=== PATIENT | female | born 1995 | race Caucasian/White ===

== ENCOUNTER 2019-07-01 12:19 | Emergency (ER) | payer BC, OTHER ==
[~2019-07-01] VITALS: Ht 170 cm; Wt 64.0 kg
[2019-07-01] MEDS ORDERED: LACTATED RINGERS 1,000 ML IV ONE (13:02)
[2019-07-01] MEDS ORDERED: FAMOTIDINE 20 MG (PEPCID) TABLET PO STA (13:02)
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
[2019-07-01] MEDS ORDERED: DICL75TA2 (13:10)
[2019-07-01] MEDS ORDERED: GABA-486 (13:10)
[2019-07-01] MEDS ORDERED: GABA-488 (13:10)
[2019-07-01] MEDS ORDERED: SPIR50TA4 (13:10)
[2019-07-01] MEDS ORDERED: DULO30CA49 (13:10)
[2019-07-01] MEDS ORDERED: LIDOCAINE 2% VISCOUS 15 ML UDC PO ONE (13:15)
[2019-07-01] MEDS ORDERED: ANTACID SUSP 30 ML UDC (MYLANTA) PO ONE (13:15)
[2019-07-01 13:16] LABS: BASOPHILS % (AUTO) 0 % (0-10); EOSINOPHILS # (AUTO) 0.1 10^3/uL (0.0-0.3); EOSINOPHILS % (AUTO) 1 % (0-10); HEMATOCRIT 43 % (35-52); HEMOGLOBIN 14.4 G/DL (11.5-16.0); LYMPHOCYTES # (AUTO) 2.1 X 10^3 (1.0-4.0); LYMPHOCYTES % (AUTO) 30 % (12-44); MEAN CORPUSCULAR HEMOGLOBIN 32 PG (25-34); MEAN CORPUSCULAR HGB CONC 34 G/DL (32-36); MEAN CORPUSCULAR VOLUME 94 FL (80-99); MEAN PLATELET VOLUME 10.2 FL (7.4-10.4); MONOCYTES # (AUTO) 0.4 X 10^3 (0.0-1.0); MONOCYTES % (AUTO) 6 % (0-12); NEUTROPHILS # (AUTO) 4.3 X 10^3 (1.8-7.8); NEUTROPHILS % (AUTO) 63 % (42-75); PLATELET COUNT 204 10^3/uL (130-400); RED CELL DISTRIBUTION WIDTH 12.5 % (10.0-14.5); WHITE BLOOD COUNT 6.9 10^3/uL (4.3-11.0)
[2019-07-01 13:22] LABS: BILIRUBIN,URINE NEGATIVE (NEGATIVE); CLARITY,URINE CLEAR; COLOR,URINE YELLOW; GLUCOSE, URINE (UA) NEGATIVE (NEGATIVE); KETONES,URINE NEGATIVE (NEGATIVE); LEUKOCYTE ESTERASE ,URINE NEGATIVE (NEGATIVE); NITRITE,URINE NEGATIVE (NEGATIVE); PH,URINE 7.5 (5-9); PROTEIN,URINE NEGATIVE (NEGATIVE)
[2019-07-01 13:30] LABS: BACTERIA,URINE FEW /HPF; SQUAMOUS EPITHELIAL CELL,UR 25-50 /HPF
[2019-07-01 13:39] LABS: ALANINE AMINOTRANSFERASE 13 U/L (0-55); ALBUMIN 4.5 GM/DL (3.2-4.5); ALKALINE PHOSPHATASE 59 U/L (40-136); BILIRUBIN,TOTAL 0.6 MG/DL (0.1-1.0); BUN/CREATININE RATIO 20; CALCIUM 8.9 MG/DL (8.5-10.1); CARBON DIOXIDE 25 MMOL/L (21-32); CHLORIDE 108 MMOL/L (98-107); CREATININE SERUM 0.79 MG/DL (0.60-1.30); GFR ESTIMATED > 60; GLUCOSE 83 MG/DL (70-105); LIPASE 10 U/L (8-78); SODIUM 140 MMOL/L (135-145)
[2019-07-01] MEDS ORDERED: NS 100 ML (IVPB) BAG IV ONE (14:30)
[2019-07-01] MEDS ORDERED: KETOROLAC 30 MG/ML VIAL IVP ONE (14:30)
[2019-07-01] MEDS ORDERED: HOLD METFORMIN - RECEIVED CONTRAST 20 ML VIAL IV SCH (14:30)
[2019-07-01] MEDS ORDERED: IOHEXOL 350 MG/ML 100 ML (OMNIPAQUE 350) VIAL IV ONE (14:30)
--- NOTE | 2019-07-01 15:28 | Diagnostic Imaging Report ---
PROCEDURE: CT abdomen and pelvis with contrast. TECHNIQUE: Multiple contiguous axial images were obtained through the abdomen and pelvis after administration of intravenous contrast. Auto Exposure Controls were utilized during the CT exam to meet ALARA standards for radiation dose reduction. INDICATION: Generalized abdominal pain. COMPARISON: None. FINDINGS: The lung bases are clear. The gallbladder, solid organs, vascular structures and small bowel are normal. Minimal constipation is seen throughout the colon. There is no obstruction, free air or free fluid. The appendix is not seen with certainty. No indirect signs of acute appendicitis are identified. There is an IUD within the uterus. There is a physiologic follicle in the left adnexa measuring 28 mm. There is no free fluid or abscess. No hernia is identified. Osseous structures are age-appropriate. IMPRESSION: 1. Minimal constipation without bowel obstruction. 2. Benign-appearing physiologic follicle in the left adnexa. No inflammation or free fluid identified. Dictated by: Dictated on workstation # [id number]
[2019-07-01 15:48] VITALS: BP 108/75
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
--- OUTSIDE RECORDS SUMMARY | 2019-07-26 21:56 | XMS REPORT ---
Author Author Quynh KATHLEEN Organization [facility] Address [address] [place] [address] Care Team Providers Care Technical Supervisor Name Role Phone SAMAN KATHLEEN Unavailable PROBLEMS Unknown Problems ALLERGIES Substance Reaction Event Type Date Status Vicodin hives Drug Allergy Apr, Active Percocet hives Drug Allergy Apr, Active Mobic itching Drug Allergy Apr, Active Lyrica Unknown Drug Allergy Apr, Active Codeine Sulfate hives Drug Allergy Apr, Active Adhesive tape rash Non Drug Allergy Apr, Active ENCOUNTERS Encounter Location Date Diagnosis [facility] [id number] [place] [id number] Apr, Viral upper respiratory tract infection J06.9 and Sore throat J02.9 [facility] [address] [facility] [id number] [place] [id number] Mar, Acute right-sided back pain, unspecified back location M54.9 and Dysuria R30.0 [facility] [address] [facility] [id number] [place] [id number] Oct, Cough R05 and Rib pain on right side R07 .81 [facility] [address] [place] [id number] [place] [id number] Sep, Acute bilateral back pain, unspecified b ack location M54.9 [facility] [address] [facility] [id number] [place] [id number] Jul, Cough R05 and PND (post-nasal drip) R09. 82 [facility] [address] [facility] [id number] [place] [id number] Apr, Strep throat J02.[address] [id number], [place] [id number] Apr, Hordeolum externum of right upper eyelid H00.011 [facility] [address] [id number] [place] [id number] Oct, Pain of toe of left foot M79.675 [facility] [place] [address] [id number] [place] [id number] Sep, Dysuria R30.0 [facility] [address] [id number] [place] [id number] Jul, Acute idiopathic gout involving toe, uns pecified laterality M10.[address] [facility] [address] [id number][place] [id number] Jul, Acute idiopathic gout involving toe, uns pecified laterality M10.[address] [facility] [address] [id number][place] [id number] Mar, Dental examination Z01.20 [facility] [address] [id number] [place] [id number] Jan, Flank pain R10.9 [facility] [address] [id number] [place] [id number] Jan, Flank pain R10.9 and History of recurren t UTI (urinary tract infection) Z87.[address] [facility] [address] [id number][place] [id number] Dec, Subacute frontal sinusitis J01.10 [facility] [address] [id number] [place] [id number] November, Sore throat J02.9 [facility] [address] [id number] [place] [id number] Aug, [facility] [address] [id number] [place] [id number] Aug, Acute tonsillitis, unspecified etiology J03.90 [facility] [address] [id number] [place] [id number] Jan, Stye 373.11 [facility] [address] [id number][place] [id number] November, Dental examination V72.2 [facility] [address] [id number] [address] [place] [phone] Oct, [facility] [address] [id number] [address] [place] [phone] Oct, [facility] [address] [id number] [place], [place] [id number] Sep, [facility] [address] [id number] [address] [place] [phone] Sep, [facility] [address] [id number] [address] [place] [place] [phone] May, [facility] [address] [id number] [address] [place] [place] [phone] May, [facility] [address] [facility] [id number] [address] [place] [place] [phone] May, [facility] [address] [facility] [id number] [address] [place] [place] [phone] Mar, IMMUNIZATIONS No Known Immunizations SOCIAL HISTORY Never Assessed REASON FOR VISIT Pt c/o sore throat started Wednesday, cough started today Lynnette BENITEZ PLAN OF CARE Activity Details Follow Up prn Reason: VITAL SIGNS Height 66 in 2018-04-05 Weight 127.2 lbs 2018-04-05 Temperature 96.9 degrees Fahrenheit 2018-04-05 Heart Rate 82 bpm 2018-04-05 Respiratory Rate 18 2018-04-05 BMI 20.53 kg/m2 2018-04-05 Blood pressure systolic 88 mmHg 2018-04-05 Blood pressure diastolic 68 mmHg 2018-04-05 MEDICATIONS Medication Instructions Dosage Frequency Start Date End Date Duration S tatus Calcium & Magnesium Carbonates Active Cymbalta 30 MG Orally Once a day 1 capsule 24h Active Flonase 50 MCG/ACT Nasally Once a day 1 spray in each nostril 24h Apr, 30 day(s) Active Nabumetone 500 mg Orally Once a day 1 tablet 24h Active Zyrtec Allergy 10 mg Orally Once a day 1 tablet 24h Apr, 201 8 4 May, 2018 30 day(s) Active Mirena 20 MCG/24HR Activ e Oxybutynin Chloride ER 5 MG Orally Once a day 1 tablet 24h Active Gabapentin 300 MG Orally Three times a day 1 capsule 8h Active Zanaflex 4 MG Orally Once a day 1 tablet as needed 24h Active RESULTS Name Result Date Reference Range STREP A (IN HOUSE) 2018-04-05 STREP A negative Control + Lot # [id number] Exp date 08/20/2019 PROCEDURES Procedure Date Ordered Result Body Site STREP A ASSAY W/OPTIC Apr 05, 2018 INSTRUCTIONS MEDICATIONS ADMINISTERED No Known Medications MEDICAL (GENERAL) HISTORY Type Description Date Medical History headache Medical History Gout Medical History Acute idiopathic gout involving toe, uns pecified laterality Surgical History Broke right arm--rolled a dylon wattersgy-has had multiple surgeries, had feeding tube placed 2009 Surgical History scar tissue repair on right arm 07/19/20 17 Hospitalization History [facility] for multiple surgeries on right a 2009
--- OUTSIDE RECORDS SUMMARY | 2019-07-26 21:56 | XMS REPORT ---
Author Author Quynh LOPEZ [facility] Address [address] [place] [address] Care Team Providers Care Farm Equipment Technician Name Role Phone RHIANNON GAYHEYDI Unavailable [phone] PROBLEMS Type Condition ICD9-CM Code [id number] Code Onset Dates Condition S tatus SNOMED Code Problem Hordeolum externum of right upper eyelid H00.011 Active 5438964 Problem Acute idiopathic gout involving toe, unspecified lateralit y M10.079 Active 08735718 Problem Acute bronchitis 466.0 Active 105 96848 ALLERGIES Substance Reaction Event Type Date Status Vicodin hives Drug Allergy Apr, Active Percocet hives Drug Allergy Apr, Active Mobic itching Drug Allergy Apr, Active Lyrica Unknown Drug Allergy Apr, Active Codeine Sulfate hives Drug Allergy Apr, Active Adhesive tape rash Non Drug Allergy Apr, Active ENCOUNTERS Encounter Location Date Diagnosis [facility] [id number] [place] [id number] Oct, Cough R05 and Rib pain on right side R07 .81 [facility] [address] [place] [id number] [place] [id number] Sep, Acute bilateral back pain, unspecified b ack location M54.9 [facility] [address] [facility] [id number] [place] [id number] Jul, Cough R05 and PND (post-nasal drip) R09. 82 [facility] [address] [facility] [id number] [place], [place] [id number] Apr, Strep throat J02.0 [place] [address] [facility] [id number][place] [id number] Apr, Hordeolum externum of right upper eyelid H00.011 [facility] [address] [id number] [place] [id number] Oct, Pain of toe of left foot M79.675 [facility] [address] [id number] [place] [id number] Sep, Dysuria R30.0 [facility] [address] [id number] [place] [id number] Jul, Acute idiopathic gout involving toe, uns pecified laterality M10.079 [facility] [address] [id number][place] [id number] Jul, Acute idiopathic gout involving toe, uns pecified laterality M10.079 [facility] [address] [id number] HOSPITAL [place] [phone] Mar, Dental examination Z01.20 [facility] [address] [id number] [place] [id number] Jan, Flank pain R10.9 [facility] [address] [id number] [place] [id number] Jan, Flank pain R10.9 and History of recurren t UTI (urinary tract infection) Z87.440 [facility] [address] [id number] HOSPITAL [place]TH[place] [id number] Dec, Subacute frontal sinusitis J01.10 [facility] [address] [id number] [place] [id number] November, Sore throat J02.9 [facility] [address] [id number] [place] [id number] Aug, [facility] [address] [id number] [place] [id number] Aug, Acute tonsillitis, unspecified etiology J03.90 [facility] [address] [id number] [place] [id number] Jan, Stye 373.11 [facility] [address] [id number] HOSPITAL [place] [id number] November, Dental examination V72.2 [facility] [address] [id number] [address] [place] [phone] Oct, [facility] [address] [id number] [address] [place] [phone] Oct, [facility] [address] [id number] [place] [id number] Sep, [facility] [address] [id number] [address] [place] [phone] Sep, [facility] [place] [address] [id number] [address] [place] [phone] May, [facility] [place] [address] [id number] [address] [place] [phone] May, [facility] [place] [address] [id number] [address] [place] [phone] May, [facility] [place] [address] [id number] [address] [place] [phone] Mar, IMMUNIZATIONS No Known Immunizations SOCIAL HISTORY Never Assessed REASON FOR VISIT Sore throat Susie SANCHEZ PLAN OF CARE Activity Details Follow Up if not improving in clinic o r with PCP Reason: VITAL SIGNS Height 66 in 2017-04-27 Weight 129.4 lbs 2017-04-27 Temperature 98.8 degrees Fahrenheit 2017-04-27 Heart Rate 74 bpm 2017-04-27 Respiratory Rate 18 2017-04-27 BMI 20.88 kg/m2 2017-04-27 Blood pressure systolic 110 mmHg 2017-04-27 Blood pressure diastolic 60 mmHg 2017-04-27 MEDICATIONS Medication Instructions Dosage Frequency Start Date End Date Duration S tatus Diflucan 150 MG Orally Once a day, repeat in 1 week 1 tablet Apr, Active Mirena 20 MCG/24HR Activ e Cymbalta 30 MG Orally Once a day 1 capsule 24h Active Gabapentin 300 MG Orally Three times a day 1 capsule 8h Active Amoxicillin 500 mg Orally every 12 hrs 1 capsule 12h Apr, 7 6 May, 2017 10 day(s) Active Oxybutynin Chloride ER 5 MG Orally Once a day 1 tablet 24h Active Zanaflex 4 MG Orally Once a day 1 tablet as needed 24h Active Calcium & Magnesium Carbonates Active Nabumetone 500 mg Orally Once a day 1 tablet 24h Active RESULTS Name Result Date Reference Range STREP A (IN HOUSE) 2017-04-27 STREP A positive Control positive Lot # [id number] Exp date 11/25/18 PROCEDURES Procedure Date Ordered Result Body Site STREP A ASSAY W/OPTIC Apr 27, 2017 INSTRUCTIONS MEDICATIONS ADMINISTERED No Known Medications MEDICAL (GENERAL) HISTORY Type Description Date Medical History headache Medical History Gout Surgical History Broke right arm--rolled a dylon shin-has had multiple surgeries, had feeding tube placed 2009 Surgical History scar tissue repair on right arm 07/19/20 17 Hospitalization History [facility] for multiple surgeries on right a 2009
--- OUTSIDE RECORDS SUMMARY | 2019-07-26 21:56 | XMS REPORT ---
Author Author Quynh LOPEZ [facility] Address [address] [place] [address] Care Team Providers Care Shoulder Puncher Name Role Phone RHIANNON GAYHEYDI Unavailable PROBLEMS Type Condition ICD9-CM Code [id number] Code Onset Dates Condition S tatus SNOMED Code Problem Hordeolum externum of right upper eyelid H00.011 Active 0238701 Problem Acute idiopathic gout involving toe, unspecified lateralit y M10.079 Active 61700701 Problem Acute bronchitis 466.0 Active 105 42334 ALLERGIES Substance Reaction Event Type Date Status Vicodin hives Drug Allergy Oct, Active Percocet hives Drug Allergy Oct, Active Mobic itching Drug Allergy Oct, Active Lyrica Unknown Drug Allergy Oct, Active Codeine Sulfate hives Drug Allergy Oct, Active Adhesive tape rash Non Drug Allergy Oct, Active ENCOUNTERS Encounter Location Date Diagnosis [facility] [address] [place] [id number] [place] [id number] Oct, Cough R05 and Rib pain on right side R07 .81 [facility] [address] [place] [id number] [place], [place] [id number] Sep, Acute bilateral back pain, unspecified b ack location M54.9 [facility] [address] [facility] [id number] [place] [id number] 12 Jul, 2017 Cough R05 and PND (post-nasal drip) R09. 82 [facility] [address] [facility] [id number] [place] [id number] 26 Apr, 2017 Strep throat J02.0 [place] 153410 [facility] [id number] [place] [id number] 05 Apr, 2017 Hordeolum externum of right upper eyelid H00.011 [facility] [address] [id number] [place] [id number] Oct, Pain of toe of left foot M79.675 [facility] [address] [id number] [place] [id number] Sep, Dysuria R30.0 [facility] [address] [id number] [place] [id number] Jul, Acute idiopathic gout involving toe, uns pecified laterality M10.079 [facility] [address] [id number] [place] [id number] Jul, Acute idiopathic gout involving toe, uns pecified laterality M10.079 [facility] [address] [id number] GREE[facility], [place] [id number] Mar, Dental examination Z01.20 [facility] [address] [id number] [place] [id number] Jan, Flank pain R10.9 [facility] [address] [id number] [place] [id number] Jan, Flank pain R10.9 and History of recurren t UTI (urinary tract infection) Z87.440 [facility] [address] [id number] GREELEY [facility] [id number] Dec, Subacute frontal sinusitis J01.10 [facility] [address] [id number] [place] [id number] November, Sore throat J02.9 [facility] [address] [id number] [place], [place] [id number] Aug, [facility] [address] [id number] [place] [id number] Aug, Acute tonsillitis, unspecified etiology J03.90 [facility] [address] [id number] [place], [place] [id number] Jan, Stye 373.11 [facility] [address] [id number] GREELEY [facility] [id number] November, Dental examination V72.2 [facility] [address] [facility] [id number] [address] [place] [phone] Oct, [facility] [address] [facility] [id number] [address] [place] [phone] Oct, [facility] [address] [id number] [place], [place] [id number] Sep, [facility] [address] [facility] [id number] [address] [place] [phone] Sep, [facility] [address] [facility] [id number] [address] [place] [phone] May, [facility] [address] [facility] [id number] [address] [place] [phone] May, [facility] [address] [facility] [id number] [address] [place] [phone] May, [facility] [address] [facility] [id number] [address] [place] [phone] Mar, IMMUNIZATIONS No Known Immunizations SOCIAL HISTORY Never Assessed REASON FOR VISIT cough, hurts to take a deep breath Susie SANCHEZ PLAN OF CARE Activity Details Follow Up if s/s not improving with PC P or in Clinic Reason: VITAL SIGNS Height 66 in 2017-11-19 Weight 132.2 lbs 2017-11-19 Temperature 98.1 degrees Fahrenheit 2017-11-19 Heart Rate 72 bpm 2017-11-19 Respiratory Rate 18 2017-11-19 Oximetry 98 % 2017-11-19 BMI 21.34 kg/m2 2017-11-19 Blood pressure systolic 102 mmHg 2017-11-19 Blood pressure diastolic 60 mmHg 2017-11-19 MEDICATIONS Medication Instructions Dosage Frequency Start Date End Date Duration S tatus Zanaflex 4 MG Orally Once a day 1 tablet as needed 24h Active Cymbalta 30 MG Orally Once a day 1 capsule 24h Active Mirena 20 MCG/24HR Activ e Oxybutynin Chloride ER 5 MG Orally Once a day 1 tablet 24h Active Calcium & Magnesium Carbonates Active Albuterol Sulfate (2.5 MG/3ML) 0.083% Inhalation Three times a day 3 ml as needed 8h Oct, 0 days Active Nabumetone 500 mg Orally Once a day 1 tablet 24h Not-Taking Benzonatate 200 mg Orally Three times a day 1 capsule 8h Oct, Oct, 10 days Active Gabapentin 300 MG Orally Three times a day 1 capsule 8h Active RESULTS Name Result Date Reference Range Xray : Chest (PA lateral) 2017-11-19 PROCEDURES No Known procedures INSTRUCTIONS MEDICATIONS ADMINISTERED [...]
--- OUTSIDE RECORDS SUMMARY | 2019-07-26 21:56 | XMS REPORT ---
Author Author Quynh MAI Organization [employer] Address Unknown Phone Unavailable Care Team Providers Care Publications Designer Name Role Phone LAURIE MAI CP Unavailable Allergies No Known Allergies Problems Problem Type Condition Code Onset Dates Condition Statu s Assessment Flank pain R10.9 Active Problem Acute bronchitis 466.0 Active Medications No Known Medications Procedures Procedure Coding System Code Date URINALYSIS, AUTO, W/O SCOPE CPT-4 42110 February 24, 2016 Results No Known Results Summary Purpose [employer] Submission
--- OUTSIDE RECORDS SUMMARY | 2019-07-26 21:56 | XMS REPORT ---
Author Author Quynh KATHLEEN Organization [facility] Address [address] [place] [address] Care Team Providers Care Mac Artist Name Role Phone FRANNIE SAMAN Unavailable PROBLEMS Unknown Problems ALLERGIES Substance Reaction Event Type Date Status Vicodin hives Drug Allergy Mar, Active Percocet hives Drug Allergy Mar, Active Mobic itching Drug Allergy Mar, Active Lyrica Unknown Drug Allergy Mar, Active Codeine Sulfate hives Drug Allergy Mar, Active Adhesive tape rash Non Drug Allergy Mar, Active ENCOUNTERS Encounter Location Date Diagnosis [facility] [id number] [place] [id number] Apr, Viral upper respiratory tract infection J06.9 and Sore throat J02.9 [facility] [address] [facility] [id number] [place] [id number] Mar, Acute right-sided back pain, unspecified back location M54.9 and Dysuria R30.0 [facility] [address] [facility] [id number] [place] [id number] Oct, Cough R05 and Rib pain on right side R07 .81 [facility] [id number] [place] [id number] Sep, Acute bilateral back pain, unspecified b ack location M54.9 [facility] [address] [facility] [id number] [place] [id number] Jul, Cough R05 and PND (post-nasal drip) R09. 82 [facility] [address] [facility] [id number] [place] [id number] Apr, Strep throat J02.[address] [id number] CREEK[place] [id number] Apr, Hordeolum externum of right upper eyelid H00.011 [facility] [address] [id number] [place] [id number] Oct, Pain of toe of left foot M79.675 [facility] [place] [address] [id number] [place] [id number] Sep, Dysuria R30.0 [facility] [address] [id number] [place] [id number] Jul, Acute idiopathic gout involving toe, uns pecified laterality M10.079 [facility] [address] [id number] CREEK[place] [id number] Jul, Acute idiopathic gout involving toe, uns pecified laterality M10.079 [facility] [address] [id number] CREEK[place] [id number] Mar, Dental examination Z01.20 [facility] [address] [id number] [place] [id number] Jan, Flank pain R10.9 [facility] [address] [id number] [place] [id number] Jan, Flank pain R10.9 and History of recurren t UTI (urinary tract infection) Z87.440 [facility] [address] [id number] CREEK[place] [id number] Dec, Subacute frontal sinusitis J01.10 [facility] [address] [id number] [place] [id number] November, Sore throat J02.9 [facility] [address] [id number] [place] [id number] Aug, [facility] [address] [id number] [place] [id number] Aug, Acute tonsillitis, unspecified etiology J03.90 [facility] [address] [id number] [place] [id number] Jan, Stye 373.[address] [facility] [address] [id number] CREEK[place] [id number] November, Dental examination V72.2 [facility] [address] [id number] [address] [place] [phone] Oct, [facility] [address] [facility] [id number] [address] [place] [phone] Oct, [facility] [address] [id number] [place] [id number] Sep, [facility] [address] [id number] [address] [place] [phone] Sep, [facility] [address] [facility] [id number] [address] [place] [phone] May, [facility] [address] [facility] [id number] [address] [place] [phone] May, [facility] [address] [facility] [id number] [address] [place] [phone] May, [facility] [address] [facility] [id number] [address] [place] [phone] Mar, IMMUNIZATIONS No Known Immunizations SOCIAL HISTORY Never Assessed REASON FOR VISIT Pain (acute) back-ELI [place], mid lower back with sharp pain, pt feel nausea wi th the pain since PLAN OF CARE Activity Details Follow Up 2 Weeks, prn Reason:Back Galindo n, Dysuria VITAL SIGNS Height 66 in 2018-03-28 Weight 129.6 lbs 2018-03-28 Temperature 97.5 degrees Fahrenheit 2018-03-28 Heart Rate 87 bpm 2018-03-28 Respiratory Rate 18 2018-03-28 BMI 20.92 kg/m2 2018-03-28 Blood pressure systolic 98 mmHg 2018-03-28 Blood pressure diastolic 74 mmHg 2018-03-28 MEDICATIONS Medication Instructions Dosage Frequency Start Date End Date Duration S tatus Gabapentin 300 MG Orally Three times a day 1 capsule 8h Active Oxybutynin Chloride ER 5 MG Orally Once a day 1 tablet 24h Active Albuterol Sulfate (2.5 MG/3ML) 0.083% Inhalation Three times a day 3 ml as needed 8h Oct, 0 days Not-Taking PredniSONE 20 mg Orally Once a day 1 tablet 24h Mar, Apr, 05 days Active Calcium & Magnesium Carbonates Active Zanaflex 4 MG Orally Once a day 1 tablet as needed 24h Active Nabumetone 500 mg Orally Once a day 1 tablet 24h Active Mirena 20 MCG/24HR Activ e Cymbalta 30 MG Orally Once a day 1 capsule 24h Active RESULTS Name Result Date Reference Range UA LONG DIP (IN HOUSE) 2018-03-28 Lot # [id number] Exp date 06/19 Clarity clear Color yellow Odor no GLU neg ZACARIAS neg KET neg SG 1.015 BLO neg pH 6.0 Protein neg URO 0.2 NIT neg SUMMER neg Lot # Exp date PROCEDURES Procedure Date Ordered Result Body Site URINALYSIS, AUTO, W/O SCOPE Mar 28, 2018 INSTRUCTIONS MEDICATIONS ADMINISTERED No Known Medications [...]
--- OUTSIDE RECORDS SUMMARY | 2019-07-26 21:56 | XMS REPORT ---
Author Author Quynh Biggs Doctor Organization [facility] Address Unknown Phone Unavailable Care Team Providers Care Manufacturing Management Associate Name Role Phone Migration, Doctor Unavailable Unavailable PROBLEMS Unknown Problems ALLERGIES No Information ENCOUNTERS Encounter Location Date Diagnosis [facility] [id number] [place] [phone] Sep, [facility] [address] [id number] Sep, Caries K02.9 [facility] [address] [id number] Sep, Caries K02.9 ; Oral health m aintenance status requiring routine preventive dental care K08.9 and Dental examination Z01.20 [facility] [address] [id number] Sep, Dental examination Z01.20 [facility] [id number] [place] [phone] Sep, [facility] [address] [id number] Sep, Dental examination Z01.20 an d Caries K02.9 [facility] [address] [id number] [place] [id number] Apr, Viral upper respiratory tract infection J06.9 and Sore throat J02.9 [facility] [address] [id number] [place] [id number] Mar, Acute right-sided back pain, unspecified back location M54.9 and Dysuria R30.0 [facility] [address] [id number] [place] [id number] Oct, Cough R05 and Rib pain on right side R07 .81 [facility] [address] [id number] [place] [id number] Sep, Acute bilateral back pain, unspecified b ack location M54.9 [facility] [address] [facility] [id number] [place] [id number] Jul, Cough R05 and PND (post-nasal drip) R09. 82 [facility] [address] [facility] [id number] [place] [id number] Apr, Strep throat J02.0 [facility] [address] [id number] [id number] Apr, Hordeolum externum of right upper eyelid H00.011 [facility] [address] [id number] [place] [id number] Oct, Pain of toe of left foot M79.675 [facility] [address] [id number] [place] [id number] Sep, Dysuria R30.0 [facility] [address] [id number] [place] [id number] Jul, Acute idiopathic gout involving toe, uns pecified laterality M10.079 [facility] [id number] [place] [address] [id number] Jul, Acute idiopathic gout involving toe, uns pecified laterality M10.079 [facility] [address] [id number][place] [id number] Mar, Dental examination Z01.20 [facility] [address] [facility] [id number] [place] [id number] Jan, Flank pain R10.9 [facility] [address] [facility] [id number] [place] [id number] Jan, Flank pain R10.9 and History of recurren t UTI (urinary tract infection) Z87.440 [facility] [address] [id number][place] [id number] Dec, Subacute frontal sinusitis J01.10 [facility] [address] [facility] [id number] [place] [id number] November, Sore throat J02.9 [facility] [address] [id number] [place] [id number] Aug, [facility] [address] [id number] [place] [id number] Aug, Acute tonsillitis, unspecified etiology J03.90 [facility] [address] [id number] [place] [id number] Jan, Stye 373.[address] [facility] [address] [id number][place] [id number] November, Dental examination V72.2 [facility] [address] [id number] [address] [place] [phone] Oct, [facility] [address] [facility] [id number] [address] [place] [phone] Oct, [facility] [address] [id number] [place] [id number] Sep, [facility] [address] [facility] [id number] [address] [place] [phone] Sep, [facility] [address] [facility] [id number] [address] [place] [phone] May, [facility] [address] [facility] [id number] [address] [place] [phone] May, [facility] [address] [facility] [id number] [address] [place] [phone] May, [facility] [address] [facility] [id number] [address] [place] [phone] Mar, IMMUNIZATIONS No Known Immunizations SOCIAL HISTORY Never Assessed REASON FOR VISIT PLAN OF CARE VITAL SIGNS Height 66 in 2014-09-04 Weight 115.4 lbs 2014-09-04 Temperature 97.2 degrees Fahrenheit 2014-09-04 Heart Rate 76 bpm 2014-09-04 Respiratory Rate 16 2014-09-04 Blood pressure systolic 104 mmHg 2014-09-04 Blood pressure diastolic 60 mmHg 2014-09-04 MEDICATIONS Unknown Medications RESULTS No Results PROCEDURES No Known procedures INSTRUCTIONS MEDICATIONS ADMINISTERED No Known Medications MEDICAL (GENERAL) HISTORY Type Description Date Medical History headache Medical History Gout Medical History Acute idiopathic gout involving toe, uns pecified laterality Surgical History Broke right arm--rolled sa[facility] [place]-has had multiple surgeries, had feeding tube placed 2009 Surgical History scar tissue repair on right arm 07/19/20 17 Hospitalization History [facility] for [facility] on right a 2009
--- OUTSIDE RECORDS SUMMARY | 2019-07-26 21:56 | XMS REPORT ---
Author Author Quynh Biggs Doctor Organization [facility] Address Unknown Phone Unavailable Care Team Providers Care Photoengraving Supervisor Name Role Phone Migration, Doctor Unavailable Unavailable PROBLEMS Unknown Problems ALLERGIES No Information ENCOUNTERS Encounter Location Date Diagnosis [facility] [id number] [place] [phone] Sep, [facility] [address] [id number] Sep, Caries K02.9 [facility] [address] [id number] Sep, Caries K02.9 ; Oral health m aintenance status requiring routine preventive dental care K08.9 and Dental examination Z01.20 [facility] [address] [id number] Sep, Dental examination Z01.20 [facility] [id number] [place] [phone] Sep, [facility] [address] [id number] Sep, Dental examination Z01.20 an d Caries K02.9 [facility] [address] [id number] [place] [id number] Apr, Viral upper respiratory tract infection J06.9 and Sore throat J02.9 [facility] [address] [id number] [place] [id number] Mar, Acute right-sided back pain, unspecified back location M54.9 and Dysuria R30.0 [facility] [address] [id number] [place] [id number] Oct, Cough R05 and Rib pain on right side R07 .81 [facility] [address] [id number] [place] [id number] Sep, Acute bilateral back pain, unspecified b ack location M54.9 [facility] [address] [facility] [id number] [place] [id number] Jul, Cough R05 and PND (post-nasal drip) R09. 82 [facility] [address] [facility] [id number] [place] [id number] Apr, Strep throat J02.0 [facility] [address] [id number] [id number] Apr, Hordeolum externum of right upper eyelid H00.011 [facility] [address] [id number] [place] [id number] Oct, Pain of toe of left foot M79.675 [facility] [address] [id number] [place] [id number] Sep, Dysuria R30.0 [facility] [address] [id number] [place] [id number] Jul, Acute idiopathic gout involving toe, uns pecified laterality M10.079 [facility] [id number] [place] [address] [id number] Jul, Acute idiopathic gout involving toe, uns pecified laterality M10.079 [facility] [address] [id number][place] [id number] Mar, Dental examination Z01.20 [facility] [address] [facility] [id number] [place] [id number] Jan, Flank pain R10.9 [facility] [address] [facility] [id number] [place] [id number] Jan, Flank pain R10.9 and History of recurren t UTI (urinary tract infection) Z87.440 [facility] [address] [id number][place] [id number] Dec, Subacute frontal sinusitis J01.10 [facility] [address] [facility] [id number] [place] [id number] November, Sore throat J02.9 [facility] [address] [id number] [place] [id number] Aug, [facility] [address] [id number] [place] [id number] Aug, Acute tonsillitis, unspecified etiology J03.90 [facility] [address] [id number] [place] [id number] Jan, Stye [address] [facility] [id number][place] [id number] November, Dental examination V72.2 [facility] [address] [facility] [id number] [address] [place] [phone] Oct, [facility] [address] [facility] [id number] [address] [place] [phone] Oct, [facility] [address] [facility] [id number] [place] [id number] Sep, [facility] [address] [facility] [id number] [address] [place] [phone] Sep, [facility] [address] [facility] [id number] [address] [place] [phone] May, [facility] [address] [facility] [id number] [address] [place] [phone] May, [facility] [address] [facility] [id number] [address] [place] [phone] May, [facility] [address] [facility] [id number] [address] [place] [phone] Mar, IMMUNIZATIONS No Known Immunizations SOCIAL HISTORY Never Assessed REASON FOR VISIT [facility] PLAN OF CARE VITAL SIGNS MEDICATIONS Medication Instructions Dosage Frequency Start Date End Date Duration S david Zithromax Z-Jim 250 mg 2 tablet by Oral route 1 time per day for 1 days then take 1 tab daily on days 2-5 Sep, Active RESULTS No Results PROCEDURES No Known procedures INSTRUCTIONS MEDICATIONS ADMINISTERED No Known Medications MEDICAL (GENERAL) HISTORY Type Description Date Medical History headache Medical History Gout Medical History Acute idiopathic gout involving toe, uns pecified laterality Surgical History Broke right arm--rolled [place]-has had multiple surgeries, had feeding tube placed 2009 Surgical History scar tissue repair on right arm 07/19/20 17 Hospitalization History [facility] on right a 2009
--- OUTSIDE RECORDS SUMMARY | 2019-07-26 21:56 | XMS REPORT ---
Author Author Quynh KATHLEEN Organization [facility] Address [address] [place] [address] Care Team Providers Care Underwater Hunter Name Role Phone KATHLEEN, SAMAN Unavailable PROBLEMS Unknown Problems ALLERGIES No Information ENCOUNTERS Encounter Location Date Diagnosis [facility] [address] [id number] [address] [place] [phone] Sep, [facility] [id number] [place] [address] [id number] Sep, Caries K02.9 [facility] [address] [id number] [place] [address] [phone] Sep, Caries K02.9 ; Oral health m aintenance status requiring routine preventive dental care K08.9 and Dental examination Z01.20 [facility] [address] [id number] [address] [id number] Sep, Dental examination Z01.20 [facility] [address] [id number] [address] [place] [phone] Sep, [facility] [address] [id number] [place] [address] [id number] Sep, Dental examination Z01.20 an d Caries K02.9 [facility] [address] [id number] [place] [id number] Apr, Viral upper respiratory tract infection J06.9 and Sore throat J02.9 [facility] [address] [id number] [place] [id number] Mar, Acute right-sided back pain, unspecified back location M54.9 and Dysuria R30.0 [facility] [address] [id number] [place] [id number] Oct, Cough R05 and Rib pain on right side R07 .81 [facility] [place] [address] [id number] [place] [id number] Sep, Acute bilateral back pain, unspecified b ack location M54.9 [facility] [address] [id number] [place] [id number] Jul, Cough R05 and PND (post-nasal drip) R09. 82 [facility] [place] [address] [id number] [place] [id number] Apr, Strep throat J02.0 [facility] [address] [id number], [place] [id number] Apr, Hordeolum externum of right upper eyelid H00.011 [facility] [place] [address] [id number] [place] [id number] Oct, Pain of toe of left foot M79.675 [facility] [place] [address] [id number] [place] [id number] Sep, Dysuria R30.0 [facility] [place] [address] [facility] [id number] [place] [id number] Jul, Acute idiopathic gout involving toe, uns pecified laterality M10.079 [facility] [address] [id number], [place] [id number] Jul, Acute idiopathic gout involving toe, uns pecified laterality M10.079 [facility] [address] [id number], [place] [id number] Mar, Dental examination Z01.20 [facility] [address] [id number] [place] [id number] Jan, Flank pain R10.9 [facility] [place] [address] [id number] [place] [id number] Jan, Flank pain R10.9 and History of recurren t UTI (urinary tract infection) Z87.440 [facility] [id number] [place] [address] [id number] Dec, Subacute frontal sinusitis J01.10 [facility] [address] [id number] [place] [id number] November, Sore throat J02.9 [facility] [address] [id number] [place] [id number] Aug, [facility] [address] [id number] [place] [id number] Aug, Acute tonsillitis, unspecified etiology J03.90 [facility] [address] [id number] [place] [id number] Jan, Stye 373.[address] [id number], [place] [id number] November, Dental examination V72.2 [facility] [address] [facility] [id number] [address] [place] [phone] Oct, [facility] [address] [facility] [id number] [address] [place] [phone] Oct, [facility] [address] [id number] [place] [id number] Sep, [facility] [address] [facility] [id number] [address] [place] [phone] Sep, [facility] [address] [facility] [id number] [address] [place] [phone] May, [facility] [address] [facility] [id number] [address] [place] [phone] May, [facility] [address] [facility] [id number] [address] [place] [phone] May, [facility] [address] [facility] [id number] [address] [place] [phone] Mar, IMMUNIZATIONS No Known Immunizations SOCIAL HISTORY Never Assessed REASON FOR VISIT Eye Exam PLAN OF CARE VITAL SIGNS MEDICATIONS Unknown [...]
--- OUTSIDE RECORDS SUMMARY | 2019-07-26 21:57 | XMS REPORT ---
Author Author Quynh MAI Organization [facility] Address [address] [place] [address] Care Team Providers Care Research Support Specialist Name Role Phone LAURIE MAI Unavailable PROBLEMS Type Condition ICD9-CM Code [id number] Code Onset Dates Condition S tatus SNOMED Code Problem Acute idiopathic gout involving toe, unspecified lateralit y M10.079 Active 73272970 Problem Acute bronchitis 466.0 Active 105 67896 ALLERGIES Substance Reaction Event Type Date Status Vicodin hives Drug Allergy Jul, Active Percocet hives Drug Allergy Jul, Active Mobic itching Drug Allergy Jul, Active Lyrica Unknown Drug Allergy Jul, Active Codeine Sulfate hives Drug Allergy Jul, Active Adhesive tape rash Non Drug Allergy Jul, Active SOCIAL HISTORY No smoking Hx information available PLAN OF CARE Activity Details Follow Up prn Reason: VITAL SIGNS Height 66 in 2016-07-20 Weight 131.9 lbs 2016-07-20 Temperature 99 degrees Fahrenheit 2016-07-20 Heart Rate 88 bpm 2016-07-20 Respiratory Rate 16 2016-07-20 BMI 21.29 kg/m2 2016-07-20 Blood pressure systolic 110 mmHg 2016-07-20 Blood pressure diastolic 68 mmHg 2016-07-20 MEDICATIONS Medication Instructions Dosage Frequency Start Date End Date Duration S tatus Colchicine 0.6 MG Orally 2 tablets now and repeat 1 tablet in 1 koko r 2 tablet Jul, Active Nabumetone 500 MG Orally Once a day 1 tablet 24h Active Zanaflex 4 MG Orally Once a day 1 tablet as needed 24h Active Cymbalta 30 MG Orally Once a day 1 capsule 24h Active Calcium & Magnesium Carbonates Active Mirena 20 MCG/24HR Activ e RESULTS Name Result Date Reference Range URIC ACID, SERUM 2016-07-20 Uric Acid, Serum 3.9 2.5-7.1 PROCEDURES Procedure Date Ordered Related Diagnosis Body Site LAB NOT BILLED BY [facility] Jul 20, 2016 VENIPUNCT, ROUTINE* Jul 20, 2016 Office Visit, Est Pt., Level 3 Jul 20, 2016 IMMUNIZATIONS No Known Immunizations
--- OUTSIDE RECORDS SUMMARY | 2019-07-26 21:57 | XMS REPORT ---
Author Author Quynh MATOS Organization [facility] Address [address] [place] [address] Care Team Providers Care Director Clinical Research Name Role Phone LEN MATOS Unavailable PROBLEMS Type Condition ICD9-CM Code [id number] Code Onset Dates Condition S tatus SNOMED Code Problem Hordeolum externum of right upper eyelid H00.011 Active 5754633 Problem Acute idiopathic gout involving toe, unspecified lateralit y M10.079 Active 81495924 Problem Acute bronchitis 466.0 Active 105 69063 ALLERGIES Substance Reaction Event Type Date Status Vicodin hives Drug Allergy Apr, Active Percocet hives Drug Allergy Apr, Active Mobic itching Drug Allergy Apr, Active Lyrica Unknown Drug Allergy Apr, Active Codeine Sulfate hives Drug Allergy Apr, Active Adhesive tape rash Non Drug Allergy Apr, Active ENCOUNTERS Encounter Location Date Diagnosis [facility] [address] [id number] [place] [id number] Oct, Cough R05 and Rib pain on right side R07 .81 [facility] [address] [id number] [place] [id number] Sep, Acute bilateral back pain, unspecified b ack location M54.9 [facility] [address] [id number] [place] [id number] Jul, Cough R05 and PND (post-nasal drip) R09. 82 [facility] [address] [id number] [place] [id number] Apr, Strep throat J02.0 [facility] [address] [facility] [id number] [place] [id number] Apr, Hordeolum externum of right upper eyelid H00.011 [facility] [address] [id number] [place] [id number] Oct, Pain of toe of left foot M79.675 [facility] [address] [id number] [place] [id number] Sep, Dysuria R30.0 [facility] [address] [id number] [place] [id number] Jul, Acute idiopathic gout involving toe, uns pecified laterality M10.079 [facility] [address] [id number][place] [id number] Jul, Acute idiopathic gout involving toe, uns pecified laterality M10.079 [facility] [address] [id number], [place] [id number] Mar, Dental examination Z01.20 [facility] [address] [id number] [place] [id number] Jan, Flank pain R10.9 [facility] [address] [facility] [id number] [place] [id number] Jan, Flank pain R10.9 and History of recurren t UTI (urinary tract infection) Z87.440 [facility] [address] [id number], [place] [id number] Dec, Subacute frontal sinusitis J01.10 [facility] [address] [id number] [place] [id number] November, Sore throat J02.9 [facility] [address] [id number] [place] [id number] Aug, [facility] [address] [id number] [place] [id number] Aug, Acute tonsillitis, unspecified etiology J03.90 [facility] [address] [facility] [id number] [place] [id number] Jan, Stye 373.11 [facility] [address] [id number][place] [id number] November, Dental examination V72.2 [facility] [address] [facility] [id number] [address] [place] [phone] Oct, [facility] [address] [id number] [address] [place] [phone] Oct, [facility] [address] [id number] [place] [id number] Sep, [facility] [address] [facility] [id number] [address] [place] [phone] Sep, [facility] [address] [facility] [id number] [address] [place] [address] May, [facility] [address] [facility] [id number] [address] [place] [address] May, [facility] [address] [facility] [id number] [address] [place] [address] May, [facility] [address] [facility] [id number] [address] [place] [phone] Mar, IMMUNIZATIONS No Known Immunizations SOCIAL HISTORY Never Assessed REASON FOR VISIT Eye c/o- c/o right eye irritation x 3 days, drainage. marbin thomas PLAN OF CARE Activity Details Follow Up prn Reason: VITAL SIGNS Height 66 in 2017-04-06 Weight 131.8 lbs 2017-04-06 Temperature 98.4 degrees Fahrenheit 2017-04-06 Heart Rate 64 bpm 2017-04-06 Respiratory Rate 16 2017-04-06 BMI 21.27 kg/m2 2017-04-06 Blood pressure systolic 102 mmHg 2017-04-06 Blood pressure diastolic 60 mmHg 2017-04-06 MEDICATIONS Medication Instructions Dosage Frequency Start Date End Date Duration S tatus Erythromycin 5 MG/GM Ophthalmic Four times a day 1 application 6h Apr, Apr, 07 days Active Zanaflex 4 MG Orally Once a day 1 tablet as needed 24h Active Calcium & Magnesium Carbonates Active Mirena 20 MCG/24HR Activ e Cymbalta 30 MG Orally Once a day 1 capsule 24h Active RESULTS No Results PROCEDURES No Known procedures INSTRUCTIONS MEDICATIONS ADMINISTERED No Known Medications MEDICAL (GENERAL) HISTORY Type Description Date Medical History headache Medical History Gout Surgical History Broke right arm--rolled a du ne buggy-has had multiple surgeries, had feeding tube placed 2009 Surgical History scar tissue repair on right arm 07/19/20 17 Hospitalization History [facility] for multiple surgeries on right a rm 2009
--- OUTSIDE RECORDS SUMMARY | 2019-07-26 21:57 | XMS REPORT ---
Author Author Quynh MATOS Organization [facility] Address [address] [place] [address] Care Team Providers Care New Car Driver Name Role Phone NYASIA MATOSSON Unavailable PROBLEMS Type Condition ICD9-CM Code [id number] Code Onset Dates Condition S tatus SNOMED Code Problem Acute idiopathic gout involving toe, unspecified lateralit y M10.079 Active 25513926 Problem Acute bronchitis 466.0 Active 105 56969 ALLERGIES Substance Reaction Event Type Date Status Vicodin hives Drug Allergy Jul, Active Percocet hives Drug Allergy Jul, Active Mobic itching Drug Allergy Jul, Active Lyrica Unknown Drug Allergy Jul, Active Codeine Sulfate hives Drug Allergy Jul, Active Adhesive tape rash Non Drug Allergy Jul, Active SOCIAL HISTORY No smoking Hx information available PLAN OF CARE Activity Details Follow Up 4 Weeks Reason:est care in [place] for gout at a youg age VITAL SIGNS Height 66 in 2016-07-18 Weight 131.9 lbs 2016-07-18 Temperature 98.6 degrees Fahrenheit 2016-07-18 Heart Rate 90 bpm 2016-07-18 Respiratory Rate 16 2016-07-18 BMI 21.29 kg/m2 2016-07-18 Blood pressure systolic 110 mmHg 2016-07-18 Blood pressure diastolic 70 mmHg 2016-07-18 MEDICATIONS Medication Instructions Dosage Frequency Start Date End Date Duration S tatus Mirena 20 MCG/24HR Activ e Calcium & Magnesium Carbonates Active Cymbalta 30 MG Orally Once a day 1 capsule 24h Active Nabumetone 500 MG Orally Once a day 1 tablet 24h Active Zanaflex 4 MG Orally Once a day 1 tablet as needed 24h Active Colchicine 0.6 MG Orally 2 tablets now and repeat 1 tablet in 1 koko r 2 tablet Jul, Active RESULTS No Results PROCEDURES Procedure Date Ordered Related Diagnosis Body Site Office Visit, Est Pt., Level 3 Jul 18, 2016 IMMUNIZATIONS No Known Immunizations
--- OUTSIDE RECORDS SUMMARY | 2019-07-26 21:57 | XMS REPORT ---
Author Quynh Coronado [facility] eClinicalWorks Address Unknown Phone Unavailable Care Team Providers Care Finisher Wallboard And Plasterboard Name Role Phone ALEX EWING CP Unavailable Allergies, Adverse Reactions, Alerts Substance Reaction Event Type Vicodin hives Drug Allergy Percocet hives Drug Allergy Mobic itching Drug Allergy Lyrica Info Not Available Drug Allergy Codeine Sulfate hives Drug Allergy Adhesive tape rash Non Drug Allergy Problems Problem Type Condition Code Onset Dates Condition Statu s Assessment Dental examination Z01.20 Active Problem Acute bronchitis 466.0 Active Medications Medication Code System Code Instructions Start Date End Date Status Dosage Cymbalta [facility] [address]-63 30 MG Orally Once a day 1 capsule Calcium & Magnesium Carbonates [facility] [address]24[address] not defined Mirena [facility] [address]-77 20 MCG/24HR Intrauterine not defined Procedures Procedure Coding System Code Date PROPHYLAXIS - ADULT CPT-4 D1110 Mar 03, 2016 TOPICAL FLUORIDE VARNISH CPT-4 D1206 Mar 03, 2016 VERTICAL BITEWINGS - 7 TO 8 FILMS CPT-4 D0277 Mar 03, 2016 Vital Signs Date/Time: Mar 03, 2016 Blood Pressure Diastolic 67 mmHg Blood Pressure Systolic 98 mmHg Results No Known Results Summary Purpose eClinicalWorks Submission
--- OUTSIDE RECORDS SUMMARY | 2019-07-26 21:57 | XMS REPORT ---
Author Quynh Meyer Organization eClinical[employer] Address Unknown Phone Unavailable Care Team Providers Care Finish Cleaner Name Role Phone ASIF BECK CP Unavailable Allergies, Adverse Reactions, Alerts Substance Reaction Event Type Vicodin hives Drug Allergy Percocet hives Drug Allergy Mobic itching Drug Allergy Codeine Sulfate hives Drug Allergy Adhesive tape rash Non Drug Allergy Problems Problem Type Condition Code Onset Dates Condition Statu s Assessment Flank pain R10.9 Active Assessment History of recurrent UTI (urinary tract infection) Z87 .440 Active Problem Acute bronchitis 466.0 Active Medications Medication Code System Code Instructions Start Date End Date Status Dosage Mirena [facility] [address]-94 20 MCG/24HR Intrauterine not defined Cymbalta [facility] [address]-69 30 MG Orally Once a day 1 capsule Cipro [facility] [address]-25 500 MG Orally Twice a day February 21, 2016 Ju ly 2015 1 tablet Procedures Procedure Coding System Code Date Office Visit, Est Pt., Level 3 CPT-4 79657 [facility] 2015 Vital Signs Date/Time: February 21, 2016 Cardiac Monitoring Heart Rate 88 bpm Weight 126.0 lbs Height 66 in BMIPercentile 32.12 % Wt Percentile 45.69 % Blood Pressure Diastolic 70 mmHg Blood Pressure Systolic 100 mmHg Results No Known Results Summary Purpose eClinicalWorks Submission
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
--- OUTSIDE RECORDS SUMMARY | 2019-07-26 21:57 | XMS REPORT ---
Author Author Quynh MAI Organization eClinicalWorks Address Unknown Phone Unavailable Care Team Providers Care Grass Cutter Name Role Phone LAURIE MAI Unavailable Allergies No Known Allergies Problems Problem Type Condition Code Onset Dates Condition Statu s Problem Acute bronchitis 466.0 Active Medications Medication Code System Code Instructions Start Date End Date Status Dosage Amoxicillin [facility] [address]-78 500 MG Orally 3 times a day Aug 28, 2015 Sep 07, 2015 1 capsule Results No Known Results Summary Purpose eClinicalWorks Submission
--- OUTSIDE RECORDS SUMMARY | 2019-07-26 21:57 | XMS REPORT ---
Author Author Quynh LOPEZ [facility] Organization [facility] Address [address] [place] [address] Care Team Providers Care Medical Transcription Name Role Phone DMITRYJINNYRobert GAYHEYDI SHIPLEY Unavailable PROBLEMS Type Condition ICD9-CM Code [id number] Code Onset Dates Condition S tatus SNOMED Code Problem Hordeolum externum of right upper eyelid H00.011 Active 8490952 Problem Acute idiopathic gout involving toe, unspecified lateralit y M10.079 Active 74196070 Problem Acute bronchitis 466.0 Active 105 30778 ALLERGIES Substance Reaction Event Type Date Status Vicodin hives Drug Allergy Oct, Active Percocet hives Drug Allergy Oct, Active Mobic itching Drug Allergy Oct, Active Lyrica Unknown Drug Allergy Oct, Active Codeine Sulfate hives Drug Allergy Oct, Active Adhesive tape rash Non Drug Allergy Oct, Active ENCOUNTERS Encounter Location Date Diagnosis [facility] [address] [facility] [id number] [place] [id number] Sep, Acute bilateral back pain, unspecified b k location M54.9 [facility] [address] [id number] [place] [id number] Jul, Cough R05 and PND (post-nasal drip) R09. 82 [facility] [address] [facility] [id number] [place] [id number] Apr, Strep throat J02.0 [place] [place] [id number] [facility] [id number] [id number] Apr, Hordeolum externum of right upper eyelid H00.011 [facility] [address] [facility] [id number] [place] [id number] Oct, Pain of toe of left foot M79.675 [facility] [address] [id number] [place] [id number] Sep, D[facility] R30.0 [facility] [place] [address] [id number] [place] [id number] Jul, Acute idiopathic gout involving toe, uns pecified laterality M10.079 [facility] [address] [id number] [place] [id number] Jul, Acute idiopathic gout involving toe, uns pecified laterality M10.079 [facility] [address] [id number] [place] [id number] Mar, Dental examination Z01.20 [facility] [address] [id number] [place] [id number] Jan, Flank pain R10.9 [facility] [address] [id number] [place] [id number] Jan, Flank pain R10.9 and History of recurren t UTI (urinary tract infection) Z87.440 [facility] [address] [id number] [place] [id number] Dec, Subacute frontal sinusitis J01.10 [facility] [address] [id number] [place] [id number] November, Sore throat J02.9 [facility] [address] [id number] [place] [id number] Aug, [facility] [place] [address] [id number] [place] [id number] Aug, Acute tonsillitis, unspecified etiology J03.90 [facility] [address] [id number] [place] [id number] Jan, Stye 373.11 [facility] [address] [id number] [id number] November, Dental examination V72.2 [facility] [address] [facility] [id number] [address] [place] [phone] Oct, [facility] [address] [facility] [id number] [address] [place] [phone] Oct, [facility] [address] [id number] [place] [id number] Sep, [facility] [address] [facility] [id number] [address] [place] [phone] Sep, [facility] [address] [facility] [id number] [address] [place] [phone] May, [facility] [address] [facility] [id number] [address] [place] [phone] May, [facility] [address] [facility] [id number] [address] [place] [phone] May, [facility] [address] [facility] [id number] [address] [place] [phone] Mar, IMMUNIZATIONS No Known Immunizations SOCIAL HISTORY Never Assessed REASON FOR VISIT toe pain PLAN OF CARE Activity Details Follow Up 2 - 3 Days Reason:for parita l nail removal with Terrell Anderson to assist VITAL SIGNS Height 66 in 2016-11-06 Weight 127 lbs 2016-11-06 Temperature 99.1 degrees Fahrenheit 2016-11-06 Heart Rate 96 bpm 2016-11-06 Respiratory Rate 16 2016-11-06 BMI 20.50 kg/m2 2016-11-06 Blood pressure systolic 112 mmHg 2016-11-06 Blood pressure diastolic 68 mmHg 2016-11-06 MEDICATIONS Medication Instructions Dosage Frequency Start Date End Date Duration S tatus Mirena 20 MCG/24HR Activ e Zanaflex 4 MG Orally Once a day 1 tablet as needed 24h Active Calcium & Magnesium Carbonates Active Cymbalta 30 [...]
== END 2019-07-01 15:48 | disposition home or self-care (01) ==
LOC: EDUNIT# 12:19 → ER 12:20
DX: K59.00 Constipation, unspecified (principal); N83.202 Unspecified ovarian cyst, left side; Z88.6 Allergy status to analgesic agent; Z88.5 Allergy status to narcotic agent; Z88.8 Allergy status to other drugs, medicaments and biological substances
CPT/HCPCS: 36415; 74177; 80053; 81000; 83690; 84703; 85025; 86141; 86308; 96361; 96374

== ENCOUNTER 2019-11-29 11:19 | Outpatient (RCR) | payer BC ==
[~2019-11-29 11:19] MED LIST: DICL75TA2; DULO30CA49; GABA-486; GABA-488; SPIR50TA4
[2019-12-05] MEDS ORDERED: PLEC3TAB PO (16:04)
[2019-12-05] MEDS ORDERED: [UNRECOGNIZED DRUG - OTHER] IM (16:04)
== END 2020-02-27 | disposition home or self-care (01) ==
LOC: CARD 11:19
PROVIDERS: ATTEND Nurse Practitioner Family
DX: R55 Syncope and collapse (principal)
CPT/HCPCS: 93225; 93226

== ENCOUNTER 2019-12-05 15:21 | Emergency (ER) | payer BC ==
[~2019-12-05] VITALS: Ht 170 cm; Wt 67.0 kg
[2019-12-05 15:53] LABS: BASOPHILS % (AUTO) 0 % (0-10); EOSINOPHILS # (AUTO) 0.1 10^3/uL (0.0-0.3); EOSINOPHILS % (AUTO) 1 % (0-10); HEMATOCRIT 43 % (35-52); HEMOGLOBIN 14.8 G/DL (11.5-16.0); LYMPHOCYTES # (AUTO) 2.5 X 10^3 (1.0-4.0); LYMPHOCYTES % (AUTO) 34 % (12-44); MEAN CORPUSCULAR HEMOGLOBIN 33 PG (25-34); MEAN CORPUSCULAR HGB CONC 35 G/DL (32-36); MEAN CORPUSCULAR VOLUME 94 FL (80-99); MEAN PLATELET VOLUME 10.1 FL (7.4-10.4); MONOCYTES # (AUTO) 0.6 X 10^3 (0.0-1.0); MONOCYTES % (AUTO) 8 % (0-12); NEUTROPHILS # (AUTO) 4.1 X 10^3 (1.8-7.8); NEUTROPHILS % (AUTO) 56 % (42-75); PLATELET COUNT 257 10^3/uL (130-400); RED CELL DISTRIBUTION WIDTH 11.9 % (10.0-14.5); WHITE BLOOD COUNT 7.2 10^3/uL (4.3-11.0)
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
[2019-12-05] MEDS ORDERED: [UNRECOGNIZED DRUG - OTHER] IM (16:04)
[2019-12-05] MEDS ORDERED: PLEC3TAB PO (16:04)
[2019-12-05 16:06] LABS: ALBUMIN 4.4 GM/DL (3.2-4.5); CHLORIDE 107 MMOL/L (98-107); POTASSIUM 3.8 MMOL/L (3.6-5.0); SODIUM 139 MMOL/L (135-145)
[2019-12-05 16:07] LABS: CALCIUM 9.2 MG/DL (8.5-10.1)
[2019-12-05 16:08] LABS: GLUCOSE 90 MG/DL (70-105); TOTAL PROTEIN 7.1 GM/DL (6.4-8.2)
[2019-12-05 16:09] LABS: CARBON DIOXIDE 22 MMOL/L (21-32)
[2019-12-05 16:10] LABS: BILIRUBIN,TOTAL 0.4 MG/DL (0.1-1.0)
[2019-12-05 16:12] LABS: ALKALINE PHOSPHATASE 58 U/L (40-136); CREATININE SERUM 0.77 MG/DL (0.60-1.30); GFR ESTIMATED > 60
[2019-12-05 16:13] LABS: BUN/CREATININE RATIO 25
--- NOTE | 2019-12-05 16:14 | Diagnostic Imaging Report ---
INDICATION: Tiredness, lightheaded, chest pain. TECHNIQUE: Single view chest 4:01 PM. CORRELATION STUDY: None FINDINGS: The heart size, mediastinal configuration and pulmonary vascularity are within normal limits. The lungs are clear with no consolidating infiltrate. There is no significant effusion or pneumothorax. IMPRESSION: 1. Negative for acute abnormality of the chest. Dictated by: Dictated on workstation # [id number]
[2019-12-05 16:15] LABS: ALANINE AMINOTRANSFERASE 15 U/L (0-55)
[2019-12-05 17:00] LABS: INR 1.1 (0.8-1.4); PROTHROMBIN TIME PATIENT 14.2 SEC (12.2-14.7)
--- NOTE | 2019-12-05 17:31 | NUR ---
[facility] NOTIFIED OF TRANSFER
[2019-12-05 17:52] VITALS: BP 98/74
== END 2019-12-05 18:10 | disposition short-term general hospital (02) ==
LOC: EDUNIT# 15:21 → ER 15:23
DX: I47.2 Ventricular tachycardia (principal); Z88.6 Allergy status to analgesic agent; Z88.5 Allergy status to narcotic agent; Z88.8 Allergy status to other drugs, medicaments and biological substances
CPT/HCPCS: 36415; 71045; 80053; 83735; 83874; 83880; 84484; 85025; 85610; 85730; 93005; 93041